=== PATIENT | female | born 1945 | race Hispanic/Latino ===

== ENCOUNTER → 2017-07-12 | Day surgery (SDC) | payer OTHER ==
[~2017-07-12] MED LIST: BUPIVACAINE 0.25% 30ML SDV INJ ONE; DEXAMETHASONE SOD PHOS INJ 4 MG/ML VIAL ONE; DICLOFENAC; EPHEDRINE SULFATE INJ 50 MG/10 ML SYR ONE; FENTANYL CITRATE/PF 100MCG/2 ML INJ ONE; HCTZ 25MG; KLOR CON 10 MEQ; KLOR-CON 1010 MEQ PO; LIDOCAINE HCL 1% LOCAL INJ 20 ML VIAL ONE; LIDOCAINE HCL 2% LOCAL INJ 5 ML SDV VIAL INJ ONE; LISINOPRIL-HCT1 EAC1 PO; MIDAZOLAM HCL 2 MG/2 ML VIAL ONE; ONDANSETRON HCL INJ 2 MG/ML VIAL ONE; POTASSIUM CHLORIDE 20MEQ/100ML 100 ML IV ONE; POTASSIUM CHLORIDE 20MEQ/100ML IVPB IV ONE; PROPOFOL IV EMULSION 10 MG/ML 20 ML VIAL ONE; SEVOFLURANE INHAL SOLN 250 ML PEN BTL ONE
[2017-07-12 07:46] LABS: BASOPHILS % 0.6 % (0.0-1.0); EOSINOPHILS # (AUTO) 0.2 (0.0-0.4); EOSINOPHILS % 3.2 % (0.0-6.0); HEMATOCRIT 38.1 % (34.2-44.1); HEMOGLOBIN 13.1 g/dL (12.0-16.0); LYMPHOCYTES # (AUTO) 2.3 (1.0-3.2); LYMPHOCYTES % 43.2 % (18.0-39.1); MEAN CORPUSCULAR HEMOGLOBIN 29.4 pg (28-32); MEAN CORPUSCULAR HGB CONC 34.4 g/dL (31-35); MEAN CORPUSCULAR VOLUME 85.4 fL (81-99); MONOCYTES # (AUTO) 0.4 (0.2-0.8); MONOCYTES % 8.2 % (4.4-11.3); NEUTROPHILS # (AUTO) 2.4 (2.1-6.9); NEUTROPHILS % 44.8 % (38.7-80.0); PLATELET COUNT 203 x10e3/uL (140-360); RED BLOOD COUNT 4.46 x10e6/uL (3.6-5.1); RED CELL DISTRIBUTION WIDTH 12.2 % (11.7-14.4)
[2017-07-12 08:00] LABS: ALBUMIN 3.9 g/dL (3.5-5.0); ALBUMIN/GLOBULIN RATIO 1.1 (0.8-2.0); CALCIUM 9.4 mg/dL (8.4-10.2); CREATININE, SERUM 0.94 mg/dL (0.57-1.11)
--- NOTE | 2017-07-12 08:28 | Diagnostic Imaging Report ---
PROCEDURE: X-RAY CHEST, TWO VIEWS COMPARISON: None. INDICATIONS: PRE-OP FOR NEEDLE SURGERY FINDINGS: LUNGS: No consolidations or edema. PLEURA: No effusions or pneumothorax. HEART \T\ MEDIASTINUM: The heart is within normal size-limits. Calcification and tortuosity of the thoracic aorta. Focal eventration posteriorly of the right hemidiaphragm. BONES \T\ SOFT TISSUES: No acute findings. CONCLUSION: No acute thoracic abnormality. Carlo Godoy D.O. Dictated by: Carlo Godoy D.O. on 07/12/2017 at 8:27 Electronically approved by: Carlo Godoy D.O. on 07/12/2017 at 8:27
--- NOTE | 2017-07-12 15:47 | Diagnostic Imaging Report ---
THIS REPORT HAS BEEN AMENDED. #[id number] - [id number] NEEDLE LOCALIZATION: 07/12/2017 PROCEDURE DESCRIPTION: The patient had a stereotactic biopsy of the left breast, at 12:00. Mammograms show a biopsy marker clip at the lesion location. Preoperative localization was requested. Written informed written consent was obtained from the patient, and a formal time out was taken to confirm patient identity and procedure to be perfomed. Using standard sterile technique, 1% lidocaine local anesthesia, and mammographic guidance, the biopsy clip was preoperatively localized with a hookwire. Final CC and LM mammograms were obtained to document wire location. A sterile bandage was placed over the wire and the patient was transferred from mammography with no immediate complications noted. Correlation is made to exam dated: 03/02/2017 stereotactic biopsy - [facility]. IMPRESSION: NEEDLE LOCALIZATION Follow-up with ACR/ACS guidelines. Carlo Godoy Jr., D.O. cw/chandler:07/12/2017 11:03:41 Consulting Software Engineer: Anni PAZ(R)(M), [facility] [id number] AMENDMENT: 07/21/2017 Carlo Godoy Jr., D.O. Pathology results from the needle localization and lumpectomy are negative for malignancy with atypical ductal hyperplasia.
--- NOTE | 2017-07-12 15:47 | Diagnostic Imaging Report ---
#[id number] - BRSPECLT SPECIMEN: 07/12/2017 Correlation is made to exam dated: 07/12/2017 localization - [facility]. Specimen contains the hookwire, biopsy clip and faint residual calcifications. IMPRESSION: SPECIMEN Follow-up with ACR/ACS guidelines. Carlo Godoy Jr., D.O. cw/:07/12/2017 11:24:49 Glue Spreading Machine Operator: Anni PAZ(R)(M), [facility]
--- NOTE | 2017-07-12 17:18 | Operative Report ---
DATE OF PROCEDURE: July 12, 2017 PREOPERATIVE DIAGNOSIS: Left breast calcifications, rule out malignancy. POSTOPERATIVE DIAGNOSIS: Left breast calcifications, rule out malignancy, pending permanent section. OPERATION PERFORMED: Left partial mastectomy with preoperative ultrasound-guided needle localization and intraoperative specimen mammography. ANESTHESIA: General. COMPLICATIONS: None. ESTIMATED BLOOD LOSS: Minimal. DESCRIPTION OF PROCEDURE: With the patient lying in bed in the supine position, under good general anesthesia, after having undergone a successful needle localization of the left breast area calcifications, the left breast was prepped with Betadine solution and draped in the usual manner. Incision was made around the wire in the circumareolar area and carried down through the subcutaneous tissue to the area in question. The area in question was then slowly and carefully encircled and totally and completely removed, and the specimen was then sent for specimen mammography, which showed that the area in question had indeed been removed. The whole area was then thoroughly irrigated. Perfect hemostasis was ascertained. The breast tissue was then reapproximated with interrupted sutures of 2-0 chromic, and the skin was closed with interrupted vertical mattress sutures of 4-0 nylon. Dressing was applied. The sponge, lap and needle count was correct. The patient tolerated the procedure well and returned to the recovery room in stable condition. Job#: [id number]
--- OUTSIDE RECORDS SUMMARY | 2017-08-27 12:27 | XMS REPORT ---
Author [facility] Address Unknown Phone Unavailable Care Team Providers Care Cpr Ambulance Driver Name Role Phone DEIDRE FERNANDEZ Unavailable Unavailable Problems This patient has no known problems. Allergies, Adverse Reactions, Alerts This patient has no known allergies or adverse reactions. Medications This patient has no known medications. Results Test Description Test Time Test Comments Text Results Atomic Results Result Comments BREAST SPECIMEN LT RADIOGRAPH [place] [address] Patient Name: ROOSEVELT OWEN MR #: [id number] : 1945 Age/Sex: 72/F Req #: [id number] Adm Physician: Ordered by: DEIDRE FERNANDEZ MD Report #: [id number] Location: MAMMO Room/Bed: Procedure: [id number] MG/BREAST SPECIMEN LT RADIOGRAPH Exam Date: 07/12/17 Exam Time: 1050 REPORT STATUS: Signed # [id number] - BRSPECLT SPECIMEN: 07/12/2017 Correlation is made to exam dated: 07/12/2017 localization - [facility]. Specimen contains the hookwire, biopsy clip and faint residual calcifications. IMPRESSION: SPECIMEN Follow-up with ACR/ACS guidelines. Anthony Godoy Jr., D.O. cw/:07/12/2017 11:24:49 Director Of Sustainable Design: Anni GOMEZ)(El), [facility] Dictated By: ANTHONY GODOY DO 23 Transcribed By: YOSVANY on 07/12/171123 COPY TO: DEIDRE FERNANDEZ MD PERQ DEVICE BRST 1ST IMAG-LT [place] [address] Patient Name: ROOSEVELT OWEN MR #: [id number] : 1945 Age/Sex: 72/F Req #: [id number] Adm Physician: Ordered by: DEIDRE FERNANDEZ MD Report #: [id number] Location: MAMMO Room/Bed: Procedure: [id number] MG/PERQ DEVICE BRST 1ST IMAG-LT Exam Date: Exam Time: REPORT STATUS: Signed THIS REPORT HAS BEEN AMENDED. #[id number] - [id number] NEEDLE LOCALIZATION: 07/12/2017 PROCEDURE DESCRIPTION: The patient had a stereotactic biopsy of the left breast , at 12:00. Mammograms show a biopsy marker clip at the lesion location. Preoperative localization was requested. Written informed written consent was obtained from the patient, and a formal time out was taken to confirm patient identity and procedure to be perfomed. Using standard sterile technique , 1% lidocaine local anesthesia, and mammographic guidance, the biopsy clip was preoperatively localized with a hookwire. Final CC and LM mammograms were obtained to document wire location. A sterile bandage was placed over the wire and the patient was transferred from mammography with no immediate complications noted. Correlation is made to exam dated: 2016 stereotactic biopsy - [facility]. IMPRESSION: NEEDLE LOCALIZATION Follow-up with ACR/ACS guidelines. Anthoynaisha cole/yosvany :07/12/2017 11:03:41 Director Of Sustainable Design: Anni Gordon RT(R)(M), [facility] [id number] AMENDMENT: 07/21/2017 Anthony Godoy Jr., D.O. Pathology results from the needle localization and lumpectomy are negative for malignancy with atypical ductal hyperplasia. Dictated By: ANTHONY GODOY DO 1103 Transcribed By: YOSVANY on 07/21/17 1125 COPY TO: DEIDRE FERNNADEZ MD CHEST 2 VIEWS [facility] [address] [place] [address] Patient Name: ROOSEVELT OWEN MR #: [id number] : 1945 Age/Sex: 72/F Req #: [id number] Adm Physician: Ordered by: DEIDRE FERNANDEZ MD Report #: [id number] Location: [facility] Room/Bed: Procedure: [id number] DX/CHEST 2 VIEWS Exam Date: 07/12/17 Exam Time: 0755 REPORT STATUS: Signed PROCEDURE: X-RAY CHEST, TWO VIEWS COMPARISON: None. INDICATIONS: PRE-OP FOR NEEDLE SURGERY FINDINGS: LUNGS: No consolidations or edema. PLEURA: No effusions or pneumothorax. HEART T MEDIASTINUM: The heart is within normal size- limits. Calcification and tortuosity of the thoracic aorta. Focal eventration posteriorly of the right hemidiaphragm. BONES T SOFT TISSUES: No acute findings. CONCLUSION: No acute thoracic abnormality. Anthony Godoy D.O. Dictated by: Anthony Godoy D.O. on 07/12/2017 at 8:27 Electronically approved by: Anthony Godoy D.O. on 07/12/2017 at 8:27 Dictated By: ANTHONY GODOY DO 6 Transcribed By: URI on 07/12/17826 COPY TO: DEIDRE FERNANDEZ MD
== END | disposition home or self-care (01) ==
LOC: OR 07:35 → MAMMO 07:35
PROVIDERS: ATTEND Surgery
DX: D24.2 Benign neoplasm of left breast (principal); I10 Essential (primary) hypertension; R06.83 Snoring
CPT/HCPCS: 36415; 71046; 80053; 85025; 88307; 88309; 93005; J1100; J2001; J2250; J2405; J3480